=== PATIENT | male | born 1985 | race Caucasian/White ===

== ENCOUNTER 2024-01-22 03:16 | Emergency (ER) | payer SELFPAY ==
[2024-01-22] MEDS ORDERED: Lorazepam 2 MG/ML VIAL ONE ×3 (03:45→04:13)
[2024-01-22 04:00] LABS: #Basophils 0.1 thou/uL (0.0-0.2); #Lymphocytes 0.6 thou/uL (1.20-3.40); #Monocytes 0.9 thou/uL (0.11-0.59); #Neutrophils 14.7 thou/uL (1.40-6.50); %Basophils 0.3 % (0.0-1.0); %Lymphocytes 3.9 % (21.0-51.0); %Monocytes 5.5 % (0.0-10.0); %Neutrophils 90.3 % (42.0-75.0); Hematocrit 56.5 % (42.0-52.0); Hemoglobin 17.3 g/dL (14.0-18.0); Mean Corpuscular HGB CONC 30.7 g/dL (32.0-36.0); Mean Corpuscular Hemoglobin 30.7 pg (27.0-31.0); Mean Corpuscular Volume 100.1 fl (78.0-98.0); Mean Platelet Volume 7.8 fL (7.4-10.4); Platelet Count 358 10x3/uL (130-400); RBC Distribution Width 13.1 % (11.5-14.5); Red Blood Cell (RBC) Count 5.65 mill/uL (4.70-6.10); White Blood Cell (WBC) Count 16.3 10x3/uL (4.8-10.8)
[2024-01-22 04:21] LABS: ALT (SGPT) 174 U/L (8-55); AST (SGOT) 108 U/L (5-34); Albumin 5.3 g/dL (3.5-5.0); Alkaline Phosphatase 54 U/L (40-110); Anion Gap 24 mmol/L (10-20); BUN (Urea Nitrogen) 5 mg/dL (8.9-20.6); Bilirubin, Total 2.1 mg/dL (0.2-1.2); CK (CPK) 402 U/L (30-200); Calc. Creatinine Clearance 0 mL/min (70-130); Carbon Dioxide 20 mmol/L (22-29); Chloride 108 mmol/L (98-107); Estimated GFR 80; Globulin 3.4 g/dL (2.4-3.5); Glucose 146 mg/dL (70-105); Potassium 4.9 mmol/L (3.5-5.1); Protein, Total 8.7 g/dL (6.0-8.3); Sodium 147 mmol/L (136-145)
[2024-01-22 04:22] LABS: Base Excess-Venous -2.7 mmol/L (-2.0 to 3.0); Bicarbonate (HCO3v) 24.5 mmol/L (22.0-28.0); CO2 Tension (PvCO2) 49.5 mmHg (42.0-51.0); Calcium, Ionized 1.27 mmol/L (1.15-1.33); Chloride 109 mmol/L (98-107); Hemoglobin - Calc 18.6 g/dL (14.0-18.0); Potassium 4.4 mmol/L (3.5-5.1); Sodium 148 mmol/L (138-145); vO2 Saturation-calc 83.9 % (60.0-85.0)
[2024-01-22] MEDS ORDERED: Midazolam HCl 5 mg/ml Vial ONE ×2 (04:23→04:40)
[2024-01-22 04:41] LABS: Troponin I 0.026 ng/mL (< 0.028)
[2024-01-22] MEDS ORDERED: Norepinephrine 4 MG/4 ML VIAL ONE (04:57)
[2024-01-22 05:32] LABS: Base Excess-Venous -5.9 mmol/L (-2.0 to 3.0); Bicarbonate (HCO3v) 18.8 mmol/L (22.0-28.0); CO2 Tension (PvCO2) 34.1 mmHg (42.0-51.0); Calcium, Ionized 1.16 mmol/L (1.15-1.33); Chloride 116 mmol/L (98-107); Hemoglobin - Calc 16.5 g/dL (14.0-18.0); Potassium 5.3 mmol/L (3.5-5.1); Sodium 151 mmol/L (138-145); T. Carbon Dioxide 19.8 mmol/L (22.0-28.0); vO2 Saturation-calc 97.7 % (60.0-85.0)
[2024-01-22 06:47] LABS: Bilirubin Small (Negative); Blood, Urine Trace (Negative); Glucose, Urine (Dipstick) Negative (Negative); Ketone, Urine 40 mg/dL (Negative); Leukocyte Negative (Negative); Nitrite Negative (Negative); Protein, Urine (Dipstick) 100 mg/dL (Neg-Trace); Urobilinogen 0.2 mg/dL (Less than 2); pH, Urine 5.5 (5.0-9.0)
[2024-01-22 06:48] LABS: Clarity Hazy (Clear); Specific Gravity, Urine 1.026 (1.002-1.036)
[2024-01-22 06:49] LABS: CAUTI Indications for Culture Pelvic or flank pain; Calcium Oxalate Crystals 1+ HPF (None Seen); RBC/HPF 0-3 HPF (0-3); Sperm/HPF 1+ HPF (None Seen); Squamous Epithelial 0-3 HPF (0-3); WBC/HPF 0-3 HPF (0-3)
[2024-01-22 06:50] LABS: Urine Culture Reflex No No
[2024-01-22 06:53] LABS: Amphetamine Detected (NotDetected); Barbiturates Screen Not Detected (NotDetected); Benzodiazepine Screen Not Detected (NotDetected); Cocaine Metabolite Screen Not Detected (NotDetected); Methadone Not Detected (NotDetected); Methamphetamine Detected (NotDetected); Opiate Screen Not Detected (NotDetected); Oxycodone Screen Not Detected (NotDetected); Phencyclidine (PCP) Not Detected (NotDetected); THC/Cannabinoid Screen Detected (NotDetected); Tricyclic Screen Not Detected (NotDetected)
[2024-01-22] MEDS ORDERED: Sodium Chloride 0.9% 1,000 ML ONE (07:22)
[2024-01-22] MEDS ORDERED: Rocuronium Bromide 10 MG/ML (10ML VIAL) ONE (09:00)
== END 2024-01-22 07:27 | disposition short-term general hospital (02) ==
LOC: MADERS 03:16
DX: T43.651A Poisoning by methamphetamines accidental (unintentional), initial encounter (principal); F17.290 Nicotine dependence, other tobacco product, uncomplicated
CPT/HCPCS: 31500; 51702; 71045; 80053; 80306; 81001; 82330; 82435; 82550; 82803; 84132; 84295; 84443; 84484; 85014; 85025; 93005; 96365; 96366; 99292; J2060; J2250; J7050